=== PATIENT | female | born 1990 | race Caucasian/White ===

== ENCOUNTER 2018-11-06 22:33 | Emergency (ER) | payer OTHER ==
[~2018-11-06] VITALS: Ht 154.9 cm; Wt 63.5 kg
--- NOTE | 2018-11-06 22:41 | NUR ---
BIBSELF FROM HOME FOR DYSURIAX 2DAYS, ALSO C/O LWOER BACK PAIN; PT AAOX4, PT ON MONITOR, VSS, NAD NOTED, PENDING MD KUNZ
[2018-11-06] MEDS ORDERED: KETOROLAC TROMETHAMINE INJ 60 MG/2 ML VIAL IM ONE (23:00)
[2018-11-06 23:06] LABS: APPEARANCE,URINE Slightly Cloudy (CLEAR); BILIRUBIN,URINE Negative (NEGATIVE); BLOOD, URINE Small Ery/uL (NEGATIVE); COLOR,URINE Yellow (YELLOW); KETONES,URINE Trace (NEGATIVE); LEUKOCYTE ESTERASE ,URINE Small (NEGATIVE); NITRITE, URINE Positive (NEGATIVE); PROTEIN,URINE 30 mg/dl (NEGATIVE); UGLUCOSE Negative (NEGATIVE)
[2018-11-06] MEDS ORDERED: KETOROLAC TROMETHAMINE INJ 30 MG/ML VIAL ONE (23:13)
[2018-11-06 23:48] LABS: BACTERIA,URINE Few /HPF (None Seen); SQUAMOUS EPITHELIAL CELL,UR Moderate /HPF (None Seen); WBC,URINE TOO NUMEROUS TO COUN /HPF (0-3)
[2018-11-07] MEDS ORDERED: CEFTRIAXONE 1 G VIAL IM ONE (00:30)
[2018-11-07] MEDS ORDERED: CEFTRIAXONE 1 G VIAL ONE (00:35)
[2018-11-07] MEDS ORDERED: LIDOCAINE /MPF 1% VIAL 5 ML VIAL ONE (00:35)
[2018-11-07] MEDS ORDERED: PHENAZOPYRIDINE HCL 200 MG TABLET ONE (00:35)
[2018-11-07 00:53] VITALS: BP 119/74
[2018-11-07] MEDS ORDERED: PHENAZOPYRIDINE HCL 200 MG TABLET PO ONE (01:00)
== END 2018-11-07 00:55 | disposition home or self-care (01) ==
LOC: ER 22:37
DX: N12 Tubulo-interstitial nephritis, not specified as acute or chronic (principal); F17.210 Nicotine dependence, cigarettes, uncomplicated; Z90.89 Acquired absence of other organs; Z87.440 Personal history of urinary (tract) infections
CPT/HCPCS: 74176; 81001; 84703; 87086; 96372 ×2; 99284; J0696; J1885; J3490; 81000-TC; 87186-TC

== ENCOUNTER 2019-02-08 06:08 | Emergency (ER) | payer OTHER ==
[~2019-02-08] VITALS: Ht 154.9 cm; Wt 63.5 kg
--- NOTE | 2019-02-08 06:15 | NUR ---
PT BIBSELF C/O OF L ABD PAIN WITH DYSURIA, AND URGENCY TO URINATE. PT AXO4. RESPIRATIONS EVEN AND UNLABORED. PT AMBULATORY WITH STEADY GAIT TO RESTROOM, URINE SAMPLE OBTAINED. PT TAKEN TO BED 10.
[2019-02-08 07:01] LABS: APPEARANCE,URINE CLEAR (CLEAR); BILIRUBIN,URINE NEGATIVE (NEGATIVE); BLOOD, URINE 2+ Ery/uL (NEGATIVE); COLOR,URINE YELLOW (YELLOW); KETONES,URINE NEGATIVE (NEGATIVE); LEUKOCYTE ESTERASE ,URINE 1+ (NEGATIVE); NITRITE, URINE NEGATIVE (NEGATIVE); PH,URINE 6.5 (5.0-8.0); PROTEIN,URINE NEGATIVE (NEGATIVE); UGLUCOSE NEGATIVE (NEGATIVE); UROBILINOGEN,URINE 0.2 EU/dL (0.2)
[2019-02-08 07:54] LABS: BACTERIA,URINE None seen /HPF (None Seen); SQUAMOUS EPITHELIAL CELL,UR None Seen /HPF (None Seen)
--- NOTE | 2019-02-08 08:19 | NUR ---
PROTECTION AGENT AT BEDSIDE FOR US.
[2019-02-08 08:55] LABS: BASOPHILS % (AUTO) 0.4 % (0.0-2.0); HEMATOCRIT 45 % (33-45); HEMOGLOBIN 15.6 g/dL (11.5-14.8); LYMPHOCYTES # (AUTO) 1.7 /CMM (0.8-4.8); LYMPHOCYTES % (AUTO) 16.7 % (20.0-44.0); MEAN CORPUSCULAR HGB CONC 35 g/dl (31.0-36.0); MEAN CORPUSCULAR VOLUME 90 fL (82-100); MONOCYTES # (AUTO) 0.4 /CMM (0.1-1.30); NEUTROPHILS # (AUTO) 7.8 /CMM (1.8-8.9); NEUTROPHILS % (AUTO) 77.9 % (43.0-81.0); PLATELET COUNT (AUTO) 253 /CMM (150-450); RED BLOOD CELL COUNT(AUTO) 4.97 MIL/uL (4.0-5.2)
[2019-02-08 09:01] LABS: CALCIUM, SERUM 9.7 mg/dL (8.5-10.1); CREATININE 0.8 mg/dL (0.6-1.3); POTASSIUM 4.1 mmol/L (3.5-5.1)
[2019-02-08 09:06] LABS: ALBUMIN 4.6 g/dL (3.4-5.0); BILIRUBIN,DIRECT 0.2 mg/dL (0.0-0.2); BILIRUBIN,TOTAL 0.6 mg/dL (0.2-1.0); TOTAL PROTEIN, SERUM 8.1 g/dL (6.4-8.2)
--- NOTE | 2019-02-08 09:14 | NUR ---
Patient discharged to home in stable condition. Written and verbal after care instructions given. Patient verbalizes understanding of instruction.
[2019-02-08 09:15] VITALS: BP 119/68
== END 2019-02-08 09:18 | disposition home or self-care (01) ==
LOC: ER 06:12
DX: N39.0 Urinary tract infection, site not specified (principal); R10.32 Left lower quadrant pain; F10.10 Alcohol abuse, uncomplicated; F17.210 Nicotine dependence, cigarettes, uncomplicated; Y90.9 Presence of alcohol in blood, level not specified; Z90.89 Acquired absence of other organs
CPT/HCPCS: 36415; 76856-TC; 80048-TC; 80076-TC; 81000-TC; 83690-TC; 84703-TC; 85025-TC; 87086-TC

== ENCOUNTER 2019-03-19 18:28 | Emergency (ER) | payer OTHER ==
[~2019-03-19] VITALS: Ht 154.9 cm; Wt 61.2 kg
[2019-03-19 18:40] VITALS: BP 116/74
--- NOTE | 2019-03-19 18:40 | NUR ---
CAME IN FOR DYSURIA, BURNING SENSATION x 2 DAYS, TO CHAIR 2, AWAITING MD KUNZ.
--- NOTE | 2019-03-19 18:47 | NUR ---
ARJUN TOPETE AT BEDSIDE FOR EVAL.
--- NOTE | 2019-03-19 19:00 | NUR ---
URINE SAMPLE SENT TO LAB
--- NOTE | 2019-03-19 19:15 | NUR ---
REPORT GIVEN TO ELPIDIO NELSON FOR LYNNE
[2019-03-19 19:21] LABS: APPEARANCE,URINE Slightly Cloudy (CLEAR); BILIRUBIN,URINE Negative (NEGATIVE); BLOOD, URINE Trace-intact Ery/uL (NEGATIVE); COLOR,URINE Yellow (YELLOW); KETONES,URINE Negative (NEGATIVE); LEUKOCYTE ESTERASE ,URINE Negative (NEGATIVE); NITRITE, URINE Positive (NEGATIVE); PH,URINE 5.5 (5.0-8.0); PROTEIN,URINE Negative (NEGATIVE); UGLUCOSE Negative (NEGATIVE); UROBILINOGEN,URINE 0.2 EU/dL (0.2)
[2019-03-19 19:36] LABS: BACTERIA,URINE Moderate /HPF (None Seen); MUCUS,URINE Few /LPF (None Seen); SQUAMOUS EPITHELIAL CELL,UR Few /HPF (None Seen)
--- NOTE | 2019-03-19 19:39 | NUR ---
Patient discharged to home in stable condition. Written and verbal after care instructions given. Patient verbalizes understanding of instruction. Pt ambulatory with a steady gait
== END 2019-03-19 19:39 | disposition home or self-care (01) ==
LOC: ER 18:31
DX: N39.0 Urinary tract infection, site not specified (principal); F17.210 Nicotine dependence, cigarettes, uncomplicated; Z90.89 Acquired absence of other organs
CPT/HCPCS: 81000-TC; 84703-TC; 87086-TC

== ENCOUNTER 2019-04-25 13:24 | Emergency (ER) | payer OTHER ==
[~2019-04-25] VITALS: Ht 154.9 cm; Wt 61.2 kg
[2019-04-25] MEDS ORDERED: DEXAMETHASONE SOD PHOSPHATE 10 MG/ML VIAL ONE (15:29)
[2019-04-25] MEDS ORDERED: KETOROLAC TROMETHAMINE INJ 30 MG/ML VIAL ONE (15:30)
[2019-04-25] MEDS ORDERED: KETOROLAC TROMETHAMINE INJ 60 MG/2 ML VIAL IM ONE (15:30)
[2019-04-25] MEDS ORDERED: DEXAMETHASONE SOD PHOSPHATE 4 MG/ML VIAL IM ONE (15:30)
[2019-04-25 15:33] LABS: APPEARANCE,URINE Clear (CLEAR); BILIRUBIN,URINE Negative (NEGATIVE); BLOOD, URINE Trace-intact Ery/uL (NEGATIVE); COLOR,URINE Yellow (YELLOW); KETONES,URINE Negative (NEGATIVE); LEUKOCYTE ESTERASE ,URINE Negative (NEGATIVE); NITRITE, URINE Negative (NEGATIVE); PH,URINE 6.5 (5.0-8.0); PROTEIN,URINE Negative (NEGATIVE); UGLUCOSE Negative (NEGATIVE); UROBILINOGEN,URINE 0.2 EU/dL (0.2)
[2019-04-25 15:47] LABS: BACTERIA,URINE None seen /HPF (None Seen); SQUAMOUS EPITHELIAL CELL,UR Few /HPF (None Seen); WBC,URINE 0-2 /HPF (0-3)
[2019-04-25 16:55] VITALS: BP 122/85
== END 2019-04-25 17:10 | disposition home or self-care (01) ==
LOC: ER 13:27
DX: S30.0XXA Contusion of lower back and pelvis, initial encounter (principal); M54.42 Lumbago with sciatica, left side; N39.0 Urinary tract infection, site not specified; R31.9 Hematuria, unspecified; F10.10 Alcohol abuse, uncomplicated; F17.210 Nicotine dependence, cigarettes, uncomplicated; Y90.9 Presence of alcohol in blood, level not specified; Z90.89 Acquired absence of other organs; W18.39XA Other fall on same level, initial encounter; Y93.89 Activity, other specified; Y92.89 Other specified places as the place of occurrence of the external cause; Y99.8 Other external cause status
CPT/HCPCS: 72220; 81001; 84703; 96372 ×2; 99284; J1100; J1885; 81000-TC

== ENCOUNTER 2019-06-03 20:59 | Emergency (ER) | payer OTHER ==
[~2019-06-03] VITALS: Ht 154.9 cm; Wt 61.2 kg
[2019-06-03 21:51] VITALS: BP 111/81
== END 2019-06-03 23:00 | disposition home or self-care (01) ==
LOC: ER 21:03
DX: J40 Bronchitis, not specified as acute or chronic (principal); F17.210 Nicotine dependence, cigarettes, uncomplicated; Z87.440 Personal history of urinary (tract) infections; Z90.89 Acquired absence of other organs

== ENCOUNTER 2019-06-14 04:16 | Emergency (ER) | payer OTHER ==
[~2019-06-14] VITALS: Ht 154.9 cm; Wt 61.2 kg
--- NOTE | 2019-06-14 04:38 | NUR ---
PT PRESENTED TO THE ER WITH A C/O CHEST PAIN S/P BRONCHITIS, UPPER BACK PAIN, AND TINGLING IN HANDS AND FEET. PT STATED THAT SHE FINISHED HER ANTIBIOTICS FOR BRONCHITIS AND IS NOW EXPERIENCING UPPER BACK PAIN AND CHEST PAIN. PT STATED THAT HER HANDS AND FEET ARE TINGLING AND SHE HAS BEEN USING VAPOR RUB ON HER BACK, CHEST, HANDS AND FEET. PT FEELS THAT IT IS HELPING WITH THE PAIN. PT WAS PLACED ON THE MONITOR AND CONTINUOUS PULSE OX.
[2019-06-14 04:47] VITALS: BP 122/65
--- NOTE | 2019-06-14 04:48 | NUR ---
Patient discharged to home in stable condition. Written and verbal after care instructions given. Patient verbalizes understanding of instruction and Rx. Pt ambulated out with a steady gait. VSS.
== END 2019-06-14 04:47 | disposition home or self-care (01) ==
LOC: ER 04:18
DX: M94.0 Chondrocostal junction syndrome [Tietze] (principal); F17.210 Nicotine dependence, cigarettes, uncomplicated; Z90.89 Acquired absence of other organs; Z87.440 Personal history of urinary (tract) infections

== ENCOUNTER 2019-10-31 05:48 | Emergency (ER) | payer OTHER ==
[~2019-10-31] VITALS: Ht 154.9 cm; Wt 61.2 kg
--- NOTE | 2019-10-31 05:59 | NUR ---
PATIENT CAME TO ER BED 16 C/O VAGINAL BLEEDING SINCE 2 DAYS AGO. PATIENT STATES THAT SHE WAS ALREADY 4 WEEKS WHEN SHE HAD TAKEN AN PILL 3 WEEKS AGO. PATIENT AAOX4. NO SOB. BREATHING EVENLY AND UNLABORED ON ROOM AIR. CONNECTED TO MONITOR.
[2019-10-31] MEDS: IV NS 0.9% 1,000 ML BAG IV ONE (06:12)
--- NOTE | 2019-10-31 06:21 | NUR ---
BLOOD RETRIEVED FROM PATIENT AND TAKEN TO LAB.
[2019-10-31 06:29] LABS: BASOPHILS % (AUTO) 0.6 % (0.0-2.0); EOSINOPHILS % (AUTO) 2.8 % (0.0-6.0); HEMATOCRIT 38 % (33-45); HEMOGLOBIN 12.7 g/dL (11.5-14.8); LYMPHOCYTES # (AUTO) 1.6 /CMM (0.8-4.8); LYMPHOCYTES % (AUTO) 30.6 % (20.0-44.0); MEAN CORPUSCULAR HGB CONC 33 g/dl (31.0-36.0); MEAN CORPUSCULAR VOLUME 90 fL (82-100); MONOCYTES # (AUTO) 0.3 /CMM (0.1-1.30); MONOCYTES % (AUTO) 5.5 % (2.0-12.0); NEUTROPHILS # (AUTO) 3.1 /CMM (1.8-8.9); NEUTROPHILS % (AUTO) 60.5 % (43.0-81.0); PLATELET COUNT (AUTO) 224 /CMM (150-450); RED BLOOD CELL COUNT(AUTO) 4.24 MIL/uL (4.0-5.2); WHITE BLOOD COUNT (AUTO) 5.1 K/uL (4.3-11.0)
[2019-10-31 06:40] LABS: APPEARANCE,URINE CLOUDY (CLEAR); BILIRUBIN,URINE NEGATIVE (NEGATIVE); BLOOD, URINE LARGE Ery/uL (NEGATIVE); COLOR,URINE RED (YELLOW); KETONES,URINE NEGATIVE (NEGATIVE); LEUKOCYTE ESTERASE ,URINE TRACE (NEGATIVE); NITRITE, URINE NEGATIVE (NEGATIVE); PROTEIN,URINE 100 mg/dl (NEGATIVE); UGLUCOSE NEGATIVE (NEGATIVE); UROBILINOGEN,URINE 0.2 EU/dL (0.2)
[2019-10-31 06:44] LABS: BACTERIA,URINE None seen /HPF (None Seen); RBC,URINE TOO NUMEROUS TO COUN /HPF (0-2); SQUAMOUS EPITHELIAL CELL,UR None Seen /HPF (None Seen); WBC,URINE NONE SEEN /HPF (0-3)
[2019-10-31 06:53] LABS: CALCIUM, SERUM 8.8 mg/dL (8.5-10.1); CREATININE 0.7 mg/dL (0.6-1.3); POTASSIUM 3.3 mmol/L (3.5-5.1)
[2019-10-31 07:04] LABS: ALBUMIN 4.1 g/dL (3.4-5.0); BILIRUBIN,DIRECT 0.1 mg/dL (0.0-0.2); BILIRUBIN,TOTAL 0.4 mg/dL (0.2-1.0); TOTAL PROTEIN, SERUM 7.3 g/dL (6.4-8.2)
--- NOTE | 2019-10-31 07:24 | NUR ---
US AT BEDSIDE
--- NOTE | 2019-10-31 07:30 | NUR ---
REPORT GIVEN TO CHEPE NELSON FOR LYNNE.
--- NOTE | 2019-10-31 08:03 | NUR ---
IV removed. Catheter intact and site benign. Pressure and 4x4 applied to site. No bleeding noted. Patient discharged to home in stable condition. Written and verbal after care instructions given. Patient verbalizes understanding of instruction.
--- NOTE | 2019-10-31 08:03 | NUR ---
Patient discharged to home in stable condition. Written and verbal after care instructions given. Patient verbalizes understanding of instruction.IV removed. Catheter intact and site benign. Pressure and 4x4 applied to site. No bleeding noted.
[2019-10-31 08:04] VITALS: BP 112/80
== END 2019-10-31 08:05 | disposition home or self-care (01) ==
LOC: ER 05:48
DX: O03.4 Incomplete spontaneous abortion without complication (principal); F17.210 Nicotine dependence, cigarettes, uncomplicated; Z90.89 Acquired absence of other organs; Z3A.00 Weeks of gestation of pregnancy not specified
CPT/HCPCS: 36415; 76856; 80048; 80076; 81001; 84702; 85025; 85730; 86850; 99284; J7030; 81000-TC

== ENCOUNTER 2019-11-22 21:32 | Emergency (ER) | payer OTHER ==
[~2019-11-22] VITALS: Ht 154.9 cm; Wt 61.2 kg
--- NOTE | 2019-11-22 21:57 | NUR ---
JUAN M FROM HOME TO ER BED 16. AAOX4. NOT IN RESP DISTRESS. BROUGHT IN ON WHEELCHAIR. CAME IN FOR VAGINAL BLEEDING FOR THE PAST 6 WEEKS TAKING AN MEDICATION BACK THEN. IN THE PAST 3 DAYS HER BLEEDING HAS BEEN HEAVY AND LASTS ALL DAY. PT DOES REPORTS CRAMPING, NAUSE AND DIARRHEA. IV LINE OBTAINED ON R AC 18G. BLOOD DRAWN AND SENT TO LAB. ABNER Saul FOR EVAL. URINE ALSO COLLECTED AND SENT TO LAB
[2019-11-22 22:04] LABS: BASOPHILS % (AUTO) 0.8 % (0.0-2.0); EOSINOPHILS % (AUTO) 1.4 % (0.0-6.0); HEMATOCRIT 29 % (33-45); HEMOGLOBIN 9.4 g/dL (11.5-14.8); LYMPHOCYTES # (AUTO) 1.7 /CMM (0.8-4.8); LYMPHOCYTES % (AUTO) 29.7 % (20.0-44.0); MEAN CORPUSCULAR HGB CONC 33 g/dl (31.0-36.0); MEAN CORPUSCULAR VOLUME 88 fL (82-100); MONOCYTES # (AUTO) 0.3 /CMM (0.1-1.30); MONOCYTES % (AUTO) 5.5 % (2.0-12.0); NEUTROPHILS # (AUTO) 3.6 /CMM (1.8-8.9); NEUTROPHILS % (AUTO) 62.6 % (43.0-81.0); PLATELET COUNT (AUTO) 256 /CMM (150-450); RED BLOOD CELL COUNT(AUTO) 3.24 MIL/uL (4.0-5.2); WHITE BLOOD COUNT (AUTO) 5.8 K/uL (4.3-11.0)
[2019-11-22 22:12] LABS: CALCIUM, SERUM 8.3 mg/dL (8.5-10.1); CREATININE 0.6 mg/dL (0.6-1.3); POTASSIUM 3.6 mmol/L (3.5-5.1)
--- NOTE | 2019-11-22 22:13 | NUR ---
US AT BEDSIDE
[2019-11-22 22:23] LABS: ALBUMIN 3.8 g/dL (3.4-5.0); BILIRUBIN,DIRECT 0.1 mg/dL (0.0-0.2); BILIRUBIN,TOTAL 0.3 mg/dL (0.2-1.0); TOTAL PROTEIN, SERUM 6.8 g/dL (6.4-8.2)
[2019-11-22 23:33] LABS: APPEARANCE,URINE Slightly Cloudy (CLEAR); BILIRUBIN,URINE Negative (NEGATIVE); BLOOD, URINE Large Ery/uL (NEGATIVE); COLOR,URINE Red (YELLOW); KETONES,URINE Negative (NEGATIVE); LEUKOCYTE ESTERASE ,URINE Negative (NEGATIVE); NITRITE, URINE Negative (NEGATIVE); PROTEIN,URINE 100 mg/dl (NEGATIVE); UGLUCOSE Negative (NEGATIVE); UROBILINOGEN,URINE 0.2 EU/dL (0.2)
--- NOTE | 2019-11-22 23:37 | NUR ---
Jennifer hayes in [facility] - 11/22/19 at 2337 by ERIN dc
--- NOTE | 2019-11-22 23:37 | NUR ---
Patient discharged to home in stable condition. Written and verbal after care instructions given. Patient verbalizes understanding of instruction.IV removed. Catheter intact and site benign. Pressure and 4x4 applied to site. No bleeding noted. Pt ambulatory with a steady gait
[2019-11-22 23:55] VITALS: BP 118/78
[2019-11-23 00:44] LABS: RBC,URINE 81-100 /HPF (0-2); WBC,URINE 0-2 /HPF (0-3)
[2019-11-23 00:45] LABS: BACTERIA,URINE None seen /HPF (None Seen); SQUAMOUS EPITHELIAL CELL,UR Few /HPF (None Seen); URINE AMORPHOUS URATE Few /HPF (None Seen)
== END 2019-11-22 23:55 | disposition home or self-care (01) ==
LOC: ER 21:34
DX: O03.4 Incomplete spontaneous abortion without complication (principal); F17.210 Nicotine dependence, cigarettes, uncomplicated; Z98.890 Other specified postprocedural states
CPT/HCPCS: 36415; 76856-TC; 80048-TC; 80076-TC; 81000-TC; 84702-TC; 85025-TC; 87086-TC

== ENCOUNTER 2023-10-11 22:57 | Emergency (ER) | payer OTHER ==
[~2023-10-11] VITALS: Ht 154.9 cm; Wt 65.8 kg
[2023-10-12 00:49] VITALS: TEMP 98.7
[2023-10-12] MEDS ORDERED: dexaMETHasone SOD PHOSPHATE 1 ML ONE (01:18)
[2023-10-12] MEDS ORDERED: KETOROLAC TROMETHAMINE INJ 60 MG/2 ML VIAL IM ONE (01:19)
[2023-10-12] MEDS: dexaMETHasone SOD PHOSPHATE 4 MG/ML VIAL IM ONE (01:29)
[2023-10-12] MEDS: KETOROLAC TROMETHAMINE INJ 60 MG/2 ML VIAL IM ONE (01:29)
[2023-10-12] MEDS: CYCLOBENZAPRINE 10 MG TABLET PO ONE (01:39)
[2023-10-12 02:54] VITALS: BP 119/84; O2SAT 100
== END 2023-10-12 02:55 | disposition home or self-care (01) ==
LOC: ER 23:03
DX: S29.019A Strain of muscle and tendon of unspecified wall of thorax, initial encounter (principal); K21.9 Gastro-esophageal reflux disease without esophagitis; F17.200 Nicotine dependence, unspecified, uncomplicated; X58.XXXA Exposure to other specified factors, initial encounter; Y93.89 Activity, other specified; Y92.89 Other specified places as the place of occurrence of the external cause; Y99.8 Other external cause status
CPT/HCPCS: 99285; 72128; 96372 ×2; J1100; J1885